=== PATIENT | female | born 1990 | race Two or more races ===

== ENCOUNTER 2016-06-06 20:26 | Emergency (ER) | payer MEDICAID ==
[2016-06-06 20:33] VITALS: TEMP 98.1
--- NOTE | 2016-06-06 22:04 | EDPHY ---
H & P Stated Complaint: BLOOD WITH BM LAST NIGHT AND TONIGHT, NO OTHER S/S Time Seen by Provider: 06/06/16 21:00 HPI/ROS: CHIEF COMPLAINT: rectal bleeding HISTORY OF PRESENT ILLNESS: 25-year-old female presents to the emergency department with 2 episodes of rectal bleeding after bowel movements, 1 last night and 1 today. Patient denies previous history of this. She denies abdominal pain, nausea vomiting or diarrhea. Patient states she has felt constipated for the last week with firmer than usual bowel movements that she has had to push to have. She has had daily bowel movements. REVIEW OF SYSTEMS: A comprehensive 10 point review of systems is otherwise negative aside from elements mentioned in the history of present illness. Source: Patient Exam Limitations: No limitations - Personal History LMP (Females 10-55): Now Current Tetanus/Diphtheria Vaccine: Unsure - Medical/Surgical History Hx Asthma: No Hx Chronic Respiratory Disease: No Hx Diabetes: No Hx Cardiac Disease: No Hx Renal Disease: No Hx Cirrhosis: No Hx Alcoholism: No Hx HIV/AIDS: No Hx Splenectomy or Spleen Trauma: No Other PMH: denies - Social History Smoking Status: Never smoked - Physical Exam Exam: Physical Exam Gen: Alert and Oriented, NAD HEENT: PERRL, moist mucous membranes NECK: no meningismus CV: regular rate and regular rhythm PULM: CTAB, no wheezes ABDOMEN: soft, non tender to palpation, BS present : No internal or external hemorrhoids, on anoscopy exam a small 2 mm anal fissure noted at the 6 o'clock position BACK: No CVA tenderness NEURO: Neurologically grossly intact EXTREMITIES: normal appearing SKIN: no rash or break in skin on exposed skin PSYCH: answers questions appropriately. Constitutional: Initial Vital Signs Temperature (C) 36.7 C 06/06/16 20:31 Heart Rate 89 06/06/16 20:31 Respiratory Rate 18 06/06/16 20:31 Blood Pressure 130/76 H 06/06/16 20:31 O2 Sat (%) 96 06/06/16 20:31 O2 Delivery Mode Room Air Allergies/Adverse Reactions: environmental Allergy (Uncoded 06/06/16 20:30) Home Medications: Medication Instructions Recorded [place] Fe 1-20 Tablet 06/06/16 Medical Decision Making Procedures: Anoscopy performed ED Course/Re-evaluation: 25-year-old nontoxic-appearing female with normal vital signs presents with 2 episodes of rectal bleeding after bowel movements. Anoscopy performed showing a small anal fissure, no active bleeding. Patient is discharged home with instructions on increasing her fiber in her diet and making her stools soft and not bearing down. She is given return precautions. She is comfortable with this plan. Differential Diagnosis: Diagnosis considered but not limited to GI bleed, hemorrhoid, anal fissure, constipation Departure - Departure Disposition: Home, Routine, Self-Care Clinical Impression: Anal fissure Condition: Good Instructions: Anal Fissure (ED) Additional Instructions: Drink plenty of fluids, eat more fiber, start taking MiraLax once a day for 7 days. Do not strain to have a bowel movement. Return to the emergency department for any increased bleeding, fevers, abdominal pain, any other questions or concerns. Referrals: Orville Chun MD [Medical Doctor] - As per Instructions (Primary care doctor on- call)
[2016-06-06 23:13] VITALS: BP 132/74; PULSE 83; RESP 16; O2SAT 94
== END 2016-06-06 23:13 | disposition home or self-care (01) ==
PROC: 0DJD8ZZ Inspection of Lower Intestinal Tract, Via Natural or Artificial Opening Endoscopic (ICD-10-PCS; principal; 2016-06-06)
DX: K60.2 Anal fissure, unspecified (principal)

== ENCOUNTER 2016-10-26 11:50 | Emergency (ER) | payer MEDICAID ==
--- NOTE | 2016-10-26 12:11 | CPEKG ---
Heart Rate: 82 RR Interval: 732 P-R Interval: 144 QRSD Interval: 78 QT Interval: 352 QTC Interval: 411 P [place]: 66 QRS [place]: 57 T Wave [place]: 0 EKG Severity - NORMAL ECG - EKG Impression: SINUS RHYTHM Electronically Signed By: Tiffanie Gonzalez 26-Oct-2016 15:37:30
[2016-10-26 13:25] LABS: % IMMATURE GRANULYOCYTES 0.3 % (0.0-1.1); ABSOLUTE IMMATURE GRANULOCYTES 0.02 10^3/uL (0.00-0.10); ADD DIFF? NO; ADD MORPH? NO; ADD SCAN? NO; ATYPICAL LYMPHOCYTE FLAG 60 (0-99); FRAGMENT RBC FLAG 0 (0-99); HEMATOCRIT 41.1 % (38.0-47.0); HEMOGLOBIN 14.1 g/dL (12.6-16.3); LEFT SHIFT FLG 0 (0-99); LIPEMIA HEMOLYSIS FLAG 90 (0-99); MEAN CELL HEMOGLOBIN 30.7 pg (27.9-34.1); MEAN CELL HEMOGLOBIN CONCENTR. 34.3 g/dL (32.4-36.7); MEAN CELL VOLUME 89.5 fL (81.5-99.8); MEAN PLATELET VOLUME 10.2 fL (8.7-11.7); PLATELET CLUMPS FLAG 0 (0-99); PLATELET COUNT 238 10^3/uL (150-400); RED BLOOD CELL COUNT 4.59 10^6/uL (4.18-5.33); RED CELL DISTRIBUTION WIDTH 13.1 % (11.5-15.2)
--- NOTE | 2016-10-26 13:58 | EDPHY ---
H & P Time Seen by Provider: 10/26/16 13:08 HPI/ROS: CHIEF COMPLAINT: Chest pain HISTORY OF PRESENT ILLNESS: The patient is a 26-year-old female who presents emergency department with 2 weeks of left-sided chest pain. She describes her pain is intermittent. Last for minutes at a time. It is not positional. It is not her worse with exertion. She also complains of left arm and left upper leg pain. These are also intermittent. She currently has no chest pain or shortness of breath. No cough fever. No leg swelling calf pain. REVIEW OF SYSTEMS: My complete review of systems is negative except as mentioned in the HPI. Past Medical/Surgical History: Negative Past surgical history: Negative Social history: The patient does not smoke. Family history: No early ACS Smoking Status: Never smoked Physical Exam: Vitals noted GENERAL: Well-appearing, in no acute distress, alert. HEENT: Eyes normal to inspection, normal pharynx, no signs of dehydration. NECK: No thyromegaly, no lymphadenopathy, supple. RESPIRATORY: Clear to auscultation bilaterally, no rales, rhonchi or wheezing. CVS: Regular rate and rhythm, no rubs, murmurs, or gallops. ABDOMEN: Soft, nontender, nondistended, no organomegaly. BACK: Normal to inspection, no CVA tenderness. SKIN: Normal color, no rash, warm, dry. No pallor. EXTREMITIES: No pedal edema, no calf tenderness, no Homans sign or cords, no joint swelling. NEURO/PSYCH: Alert and oriented x3, normal mood and affect, normal motor sensory exam. Constitutional: Initial Vital Signs Temperature (C) 36.8 C 10/26/16 11:57 Heart Rate 76 10/26/16 11:57 Respiratory Rate 20 10/26/16 11:57 Blood Pressure 112/69 10/26/16 11:57 O2 Sat (%) 97 10/26/16 11:57 O2 Delivery Mode Room Air Allergies/Adverse Reactions: environmental Allergy (Uncoded 10/26/16 11:56) Home Medications: Medication Instructions Recorded [place] Control 10/26/16 Medical Decision Making ED Course/Re-evaluation: In the emergency department I discussed possible etiologies with the patient. I answered all of her questions. Patient was given aspirin 324 mg orally. Laboratory studies, EKG were ordered. EKG shows normal sinus rhythm, normal rate, normal axis, normal intervals. There are no ST or T-wave abnormalities. EKG is normal as interpreted by me. Troponin and D-dimer negative. I rechecked the patient while here. She had no new shortness of other chest pain. Her EKG and laboratory studies were unremarkable. Id the patient warnings prior to leaving. She will return with worsening symptoms. Differential Diagnosis: My differential includes but is not limited to ACS, acute DE, pulmonary embolus , pleurisy, pneumonia, bronchitis, DVT - Data Points Laboratory Results: Laboratory Results 10/26/16 12:10 10/26/16 12:10 10/26/16 10/26/16 10/26/16 12:10 12:10 12:10 WBC 6.37 10^3/uL 10^3/uL (3.80-9.50) RBC 4.59 10^6/uL 10^6/uL (4.18-5.33) Hgb 14.1 g/dL g/dL (12.6-16.3) Hct 41.1 % % (38.0-47.0) MCV 89.5 fL fL (81.5-99.8) MCH 30.7 pg pg (27.9-34.1) MCHC 34.3 g/dL g/dL (32.4-36.7) RDW 13.1 % % (11.5-15.2) Plt Count 238 10^3/uL 10^3/uL (150-400) MPV 10.2 fL fL (8.7-11.7) Neut % (Auto) 43.2 % % (39.3-74.2) Lymph % (Auto) 44.7 % % (15.0-45.0) [place] % (Auto) 7.1 % % (4.5-13.0) Eos % (Auto) 4.1 % % (0.6-7.6) Baso % (Auto) 0.6 % % (0.3-1.7) Nucleat RBC Rel Count 0.0 % % (0.0-0.2) Absolute Neuts (auto) 2.75 10^3/uL 10^3/uL (1.70-6.50) Absolute Lymphs (auto) 2.85 10^3/uL 10^3/uL (1.00-3.00) Absolute Monos (auto) 0.45 10^3/uL 10^3/uL (0.30-0.80) Absolute Eos (auto) 0.26 10^3/uL 10^3/uL (0.03-0.40) Absolute Basos (auto) 0.04 10^3/uL 10^3/uL (0.02-0.10) Absolute Nucleated RBC 0.00 10^3/uL 10^3/uL (0-0.01) Immature Gran % 0.3 % % (0.0-1.1) Immature Gran # 0.02 10^3/uL 10^3/uL (0.00-0.10) D-Dimer < 0.27 ug/mLFEU ug/mLFEU (0.00-0.50) Sodium 139 mEq/L mEq/L (134-144) Potassium 3.9 mEq/L mEq/L (3.5-5.2) Chloride 106 mEq/L mEq/L (97-110) Carbon Dioxide 21 mEq/l L mEq/l (22-31) Anion Gap 12 mEq/L mEq/L (8-16) BUN 9 mg/dL mg/dL (7-23) Creatinine 0.6 mg/dL mg/dL (0.6-1.0) Estimated GFR > 60 Glucose 89 mg/dL mg/dL (70-100) Calcium 9.6 mg/dL mg/dL (8.5-10.4) Troponin I < 0.012 ng/mL ng/mL (0-0.034) Medications Given: Discontinued Medications Aspirin (Aspirin) 324 mg PO EDNOW ONE Stop: 10/26/16 14:17 Last Admin: 10/26/16 14:16 Dose: 324 mg Departure - Departure Disposition: Home, Routine, Self-Care Clinical Impression: Chest pain Qualifiers: Chest pain type: unspecified Qualified Code(s): R07.9 - Chest pain, unspecified Condition: Good Instructions: Chest Pain (ED) Additional Instructions: You had normal laboratory studies. Your EKG was normal. Return with increasing pain, shortness of breath or any other concerns. You been given follow-up with the primary care physician. Call to make an appointment. Referrals: NONE *PRIMARY CARE P,. [Primary Care Provider] - As per Instructions Mehreen Pool MD [Medical Doctor] - 3-4 days, if not improved
[2016-10-26 14:14] VITALS: RESP 16
[2016-10-26] MEDS ORDERED: ASPIRIN 81 MG CHEWABLE TAB PO ONE (14:16)
[2016-10-26] MEDS ORDERED: ASPIRIN 81 MG CHEWABLE TAB ONE (14:18)
[2016-10-26 14:47] LABS: ANION GAP 12 mEq/L (8-16); CALCIUM 9.6 mg/dL (8.5-10.4); CARBON DIOXIDE 21 mEq/l (22-31); CHLORIDE 106 mEq/L (97-110); CREATININE 0.6 mg/dL (0.6-1.0); GLOMERULAR FILTRATION RATE > 60; GLUCOSE 89 mg/dL (70-100); POTASSIUM 3.9 mEq/L (3.5-5.2); SODIUM 139 mEq/L (134-144)
[2016-10-26 14:58] LABS: TROPONIN I < 0.012 ng/mL (0-0.034)
[2016-10-26 15:29] VITALS: BP 111/68; PULSE 74; TEMP 99; O2SAT 96
== END 2016-10-26 15:32 | disposition home or self-care (01) ==
DX: R07.9 Chest pain, unspecified (principal)

== ENCOUNTER 2018-06-20 22:22 | Inpatient (IN) | payer MEDICAID ==
[2018-06-20] MEDS ORDERED: LIDOCAINE 1% 300 MG/30 ML SDV SC PRN (22:51)
[2018-06-20] MEDS ORDERED: OLIVE OIL 118 ML BTL MISC PRN (22:51)
[2018-06-20] MEDS ORDERED: EPSOM SALT 454 GM TP PRN (22:51)
[2018-06-20] MEDS ORDERED: IBUPROFEN 600 MG TAB PO PRN (22:51)
[2018-06-20] MEDS ORDERED: OXYTOCIN/RINGERS LACTATE 1,000 ML IV PRN (22:51)
[2018-06-20] MEDS ORDERED: MISOPROSTOL 200 MCG TAB PR PRN (22:51)
[2018-06-20 23:32] LABS: PLATELET COUNT 171 10^3/uL (150-400)
[2018-06-21] MEDS: LR 1,000 ML IV PRN ×2 (00:25→05:20)
[2018-06-21] MEDS ORDERED: LIDOCAINE 1% 300 MG/30 ML SDV ONE (00:33)
[2018-06-21] MEDS ORDERED: OLIVE OIL 118 ML BTL ONE (00:34)
[2018-06-21] MEDS ORDERED: TERBUTALINE SULFATE 1 MG/ML VIAL ONE (00:34)
[2018-06-21] MEDS ORDERED: OXYTOCIN 10 UNIT/ML VIAL ONE (00:34)
[2018-06-21] MEDS ORDERED: MISOPROSTOL 200 MCG TAB ONE (00:34)
[2018-06-21] MEDS ORDERED: AMMONIA AROMATIC 1 EACH AMP IH ONE (00:34)
--- NOTE | 2018-06-21 00:35 | PDGENHP ---
History and Physical History and Physical: Care: [facility] HPI: Daisy Medina" is a 27yo with IUP@ 40-1 weeks that presents to L&D with complaints of contractions since this morning. She states they have been increasing in pain since being seen in the office this afternoon. She denies any LOF, VB. She reports +FM. EDC: 06/20/18 which is based on LMP: 09/13/17 which is known and consistent with Ultrasound at 6 weeks. Her is complicated by: migraines without aura, mild anemia Review of Systems: Constitutional: Denies any fever, chills, or fatigue HEENT: denies any visual changes, difficulty swallowing, hearing loss Cardiovascular: Denies any chest pain, palpitations, leg swelling Respiratory: denies any cough, wheezing, or shortness of breathe GI: Denies any nausea, vomiting, diarrhea, constipation : denies any dysuria, urgency, frequency, vaginal bleeding Musculoskeletal: denies any muscle or bone pain Skin: denies any rashes Neuro: denies any headache, seizures, lightheadedness, dizziness, or loss of consciousness Psychiatric: denies any depression, anxiety, or SI/HI thoughts HISTORY: Previous OB history: G1 Past medical history: noncontributory Past surgical history: none Social: Denies any alcohol, tobacco, or drug use. Kd- Family history: Not relevant Medications: PNV, iron Allergies (list reaction): NKDA LABS: Rh: O+ ABS: Neg Rubella: Immune HbsAg: NR HIV: NR VDRL: NR 1hr: 112 GC: Neg Chlamydia: Neg Pap: Normal GBS: negative BMI: (prepreg) 21 PHYSICAL EXAM: Constitutional: WN, A&Ox3 HEENT: normocephalic atraumatic, supple Skin: Warm, dry, intact Heart: RRR, no murmur Chest: CTA-B Abdomen: Soft, nontender, gravid SVE: 5/80/-2 Extremities: trace edema, negative homans sign Neuro: grossly normal Psych: normal affect assessment: FHT baseline 145 +accels, no decels, moderate variability Contractions: toco q 2-5 Assessment: * [id number] with IUP@ 40-1wks * early labor * cat 1 fHR tracing * GBS Negative Plan: * admit to L&D * hydrotherapy/pain management PRN * IA per protocol * reassess 2-4hr/PRN * anticipate Today's visit was approximately 30 min, of which >50% of visit 25 min, was spent face to face with pt on direct counseling/coordination of care.
[2018-06-21] MEDS ORDERED: fentaNYL 2MCG/ML/BUP 0.1% RTU 100 ML BAG EP ONE (00:41)
[2018-06-21] MEDS ORDERED: PHENYLEPHRINE HCL 100 MCG/ML SYR ONE (00:41)
--- NOTE | 2018-06-21 00:45 | PREANESOB ---
Obstetric Pre-Anesthesia Info - General Info Proposed Procedure: epidural : 1 Para: 0 SALVATORE: 06/20/18 Gestational Age: 40 week(s) and 0 day(s) - Info Status: Full Term FHR Pattern: Reassuring - Labor Status Pitocin: Planned Indications for Labor Analgesia: Augmentation of Labor, Pain Control Labor Epidural: Proposed Anesthesia Allergies/Adverse Reactions: Allergy/AdvReac Type Severity Reaction Status Date / Time environmental Allergy Uncoded 06/20/18 22:48 Home Medications: Medication Instructions Recorded Iron 06/20/18 06/20/18 Visit Medications: Generic Name Dose Route Start Last Admin Trade Name Freq PRN Reason Stop Dose Admin Lactated Ringer's 1,000 mls @ 0 mls/hr 06/20/18 22:51 06/21/18 00:25 Lr IV 06/21/18 22:50 1,000 mls PRN PRN Administration SEE PROTOCOL CONDITIONS Protocol Per Protocol Oxytocin/Lactated Ringer's 1,000 mls @ 125 mls/hr 06/20/18 22:51 Pitocin 20 Units/Lr (Premix) IV PRN PRN Post bleeding Ibuprofen 600 mg 06/20/18 22:51 Motrin PO ONCE PRN post , pain Lidocaine HCl 300 mg 06/20/18 22:51 Lidocaine Hcl 1% SC 12/17/18 22:50 ONCE PRN episiotomy Magnesium Sulfate 454 gm 06/20/18 22:51 Epsom Salt TP 12/17/18 22:50 Q1H PRN perineal discomfort Misoprostol 800 - 1,000 mcg 06/20/18 22:51 Cytotec CO ONCE PRN Vaginal Atony/Bleeding Pharr Oil 118 ml 06/20/18 22:51 Sweet Oil MISC 12/17/18 22:50 ONCE PRN perineal massage Discontinued Medications Generic Name Dose Route Start Last Admin Trade Name Freq PRN Reason Stop Dose Admin Ammonia (Aromatic Spirit) Confirm 06/21/18 00:34 Ammonia Aromatic Administered 06/21/18 00:35 Dose 1 each IH .STK-MED ONE Fentanyl/Bupivacaine HCl Confirm 06/21/18 00:41 Fentanyl/Bupivacaine/Ns 2 Mcg/Ml 0.1% (Premix Administered 06/21/18 00:42 Dose 100 ml EP .STK-MED ONE Lidocaine HCl Confirm 06/21/18 00:33 Lidocaine Hcl 1% Administered 06/21/18 00:34 Dose 300 mg .ROUTE .STK-MED ONE Misoprostol Confirm 06/21/18 00:34 Cytotec Administered 06/21/18 00:35 Dose 1,000 mcg .ROUTE .STK-MED ONE Pharr Oil Confirm 06/21/18 00:34 Sweet Oil Administered 06/21/18 00:35 Dose 118 ml .ROUTE .STK-MED ONE Oxytocin Confirm 06/21/18 00:34 Pitocin Administered 06/21/18 00:35 Dose 40 unit .ROUTE .STK-MED ONE Phenylephrine HCl Confirm 06/21/18 00:41 Neosynephrine Administered 06/21/18 00:42 Dose 1,000 mcg .ROUTE .STK-MED ONE Terbutaline Sulfate Confirm 06/21/18 00:34 Brethine Administered 06/21/18 00:35 Dose 1 mg .ROUTE .STK-MED ONE - Anesthesia History Anesthesia & Operative History: No Prior Problems Family Anesthesia History: Negative - Social History Substance Use/Abuse: Denies - Vital Signs Height/Weight (Nursing): Height 160.02 cm Weight 68.039 kg - Focused Exam Neck exam: FROM Mallampati Score: Class 2 Mouth exam: normal dental/mouth exam Pulmonary: no respiratory distress, clear to auscultation Cardiovascular: regular rate and rhythym, no murmur, rub, or gallop Labs: 06/20/18 23:20 Patient ABO/Rh O POSITIVE 06/20/18 23:20 - Plan Consent Signed and on Chart: Yes Patient/Guardian Understands and Agrees to Plan: Yes
[2018-06-21] MEDS ORDERED: PHENYLEPHRINE HCL 100 MCG/ML SYR IVP PRN (01:13)
[2018-06-21] MEDS ORDERED: NALOXONE HCL 0.4 MG/ML INJ IVP PRN (01:13)
[2018-06-21] MEDS ORDERED: fentaNYL 2MCG/ML/BUP 0.1% RTU 100 ML EP SCH (01:30)
--- NOTE | 2018-06-21 03:34 | OBPROG ---
Labor Progress Note Assessment/Plan: Assessment: [id number] with IUP@ 40-1wks Active labor GBS Negative DAHIANA in place Cat 1 FHR Tracing Plan: cont expectant management reassess 2-4hr/PRN AROM if pt desires Anticipate 06/21/18 03:31 Subjective/Intrapartum Course: 06/21/18 03:33 pt resting well, comfortable with DAHIANA. Denies any pain. Objective: 06/20/18 23:20 Patient ABO/Rh O POSITIVE 06/20/18 23:20 - SVE Dilation (cm): 7 - Contraction Pattern Assessment Current Contraction Pattern: Regular - FHR Assessment Reis FHR (bpm): 145 FHR Pattern Variability: Moderate FHR Category: 1 Oxytocin Orders Assessment - Pre-Induction/Augmentation Assessment Gestational Age: 40 week(s) and 0 day(s) ICD10 Worksheet Patient Problems: Problems Problem Status Onset Labor and delivery, indication for care Acute - ICD10 Problem Qualifiers (1) Labor and delivery, indication for care
--- NOTE | 2018-06-21 05:16 | OBPROG ---
Labor Progress Note Assessment/Plan: Assessment: [id number] with IUP@ 40-1wks Active labor GBS Negative DAHIANA in place Cat 1 FHR Tracing AROM/MSF Plan: cont expectant management reassess 2-4hr/PRN Anticipate 06/21/18 05:15 Subjective/Intrapartum Course: 06/21/18 03:33 pt resting well, comfortable with DAHIANA. Denies any pain. 06/21/18 05:15 pt resting. family @ BS. She denies any pain. Objective: 06/20/18 23:20 Patient ABO/Rh O POSITIVE 06/20/18 23:20 - SVE Dilation (cm): 6 Effacement (%): 80 Station: -2 Membranes: AROM Amniotic Fluid Color: Meconium Stained - Contraction Pattern Assessment Current Contraction Pattern: Regular - FHR Assessment Reis FHR (bpm): 135 FHR Pattern Variability: Moderate FHR Category: 1 - Procedures Non-surgical Procedures: Amniotomy Oxytocin Orders Assessment - Pre-Induction/Augmentation Assessment Gestational Age: 40 week(s) and 0 day(s) ICD10 Worksheet Patient Problems: Problems Problem Status Onset Labor and delivery, indication for care Acute - ICD10 Problem Qualifiers (1) Labor and delivery, indication for care
[2018-06-21] MEDS ORDERED: METHYLERGONOVINE MAL 0.2 MG/ML INJ ONE (08:07)
[2018-06-21] MEDS ORDERED: HYDROCODONE/APAP 5/325 TAB PO PRN (08:33)
[2018-06-21] MEDS ORDERED: DOCUSATE SODIUM 100 MG CAP PO PRN (08:33)
[2018-06-21] MEDS ORDERED: SIMETHICONE 80 MG TAB CHEW PO PRN (08:33)
[2018-06-21] MEDS ORDERED: HYDROCORTISONE 0.5% CREAM TP PRN (08:33)
--- NOTE | 2018-06-21 08:33 | OBDEL ---
Info Type: Vaginal Presentation at Delivery: Vertex GBS+: No Intrapartum Medications: Generic Name Dose Route Start Last Admin Trade Name Freq PRN Reason Stop Dose Admin Lactated Ringer's 1,000 mls @ 0 mls/hr 06/20/18 22:51 06/21/18 05:20 Lr IV 06/21/18 22:50 1,000 mls PRN PRN Administration SEE PROTOCOL CONDITIONS Protocol Per Protocol Discontinued Medications Generic Name Dose Route Start Last Admin Trade Name Freq PRN Reason Stop Dose Admin Oxytocin/Lactated Ringer's 1,000 mls @ 125 mls/hr 06/20/18 22:51 06/21/18 07: 55 Pitocin 20 Units/Lr (Premix) IV 1,000 mls PRN PRN Administration Post bleeding - Hospital Course Intrapartum: 06/21/18 03:33 pt resting well, comfortable with DAHIANA. Denies any pain. 06/21/18 05:15 pt resting. family @ BS. She denies any pain. Indications for Delivery: Spontaneous Labor Vaginal Delivery - Delivery Provider Delivery Physician/CNM: Maribell James - Labor and Delivery Onset of Contractions Date: 06/20/18 Onset of Contractions Time: 06:00 Onset of Contractions Type: Spontaneous Rupture of Membranes Date: 06/21/18 Rupture of Membranes Time: 05:00 Rupture of Membranes Type: Artificial Amniotic Fluid Color: Meconium Stained Dilation Complete Date: 06/21/18 Dilation Complete Time: 06:21 Placenta Delivery Date: 06/21/18 Placenta Delivery Time: 07:50 Total Hours of Labor: 25 Non-surgical Procedures: Amniotomy Laceration: 1st Degree (vaginal), Other (Specify) (Right periurethral - hemostatic and not repaired) Repair: 3-0, Vicryl Vaginal Sponge Count Correct: Yes Vaginal Needle Count Correct: Yes Vaginal Sweep Performed: Yes EBL: 400 Delivery Events: Nuchal Cord Delivery Comment: HEAT PUMP INSTALLER at bedside for delivery due to meconium stained fluid. Baby vigorous at delivery and HEAT PUMP INSTALLER was not needed. [place] Data SALVATORE: 06/20/18 Gestational Age: 40 week(s) and 1 day(s) Reis Delivery Date: 06/21/18 Delivery Time: 07:45 Sex of Infant: Male Score (1 Min): 8 Score (5 Min): 9 ICD10 Worksheet Patient Problems: Problems Problem Status Onset Labor and delivery, indication for care Acute Vaginal delivery Acute - ICD10 Problem Qualifiers (1) Vaginal delivery
[2018-06-21] MEDS ORDERED: OXYTOCIN/RINGERS LACTATE 1,000 ML IV SCH (09:00)
[2018-06-21] MEDS: IBUPROFEN 600 MG TAB PO PRN ×2 (17:04→23:17)
[2018-06-21] MEDS: FERROUS SULFATE 325 MG TAB PO SCH ×2 (17:06→17:47)
[2018-06-21] MEDS: ACETAMINOPHEN 325 MG TAB PO PRN (23:16)
[2018-06-22] MEDS: ACETAMINOPHEN 325 MG TAB PO PRN ×3 (06:37→19:20)
[2018-06-22] MEDS: IBUPROFEN 600 MG TAB PO PRN ×3 (06:38→19:19)
[2018-06-22] MEDS: FERROUS SULFATE 325 MG TAB PO SCH ×3 (06:50→20:59)
--- NOTE | 2018-06-22 11:24 | OBPP ---
Progress Note Assessment/Plan: Assessment: 27 y/o P1 s/p ppd #1 anemia Plan: Routine pp care ferrous sulfated bid - encouraged good hydration Plan d/c home tomorrow 06/22/18 11:31 Subjective/ Course: 06/22/18 11:30 Feeling pretty good this morning, although did not get much sleep last night. Vaginal bleeding wnl, pain well controlled with oral pain meds, tolerating regular diet and activity - although she does report a little dizziness at times. going fine with support from . Objective: 06/22/18 06:45 Patient ABO/Rh O POSITIVE 06/20/18 23:20 Temp Pulse Resp BP Pulse Ox 36.4 C 90 16 97/62 L 96 06/22/18 04:00 06/22/18 04:00 06/22/18 04:00 06/22/18 04:00 06/22/18 04:00 Uterine Position/Fundal Height: At Umbilicus Uterine Tone: Firm Physical Exam - Physical Exam EENT: normal ENT inspection Neck: full range of motion Respiratory: normal breath sounds Cardiac/Chest: regular rate, rhythm Extremities: normal range of motion Skin: normal color, warm/dry Neuro/Psych: alert, normal mood/affect, oriented x 3
[2018-06-23] MEDS: IBUPROFEN 600 MG TAB PO PRN ×3 (01:36→14:58)
[2018-06-23 07:55] VITALS: BP 94/60
[2018-06-23] MEDS: FERROUS SULFATE 325 MG TAB PO SCH (09:14)
--- NOTE | 2018-06-23 11:54 | OBGCSDC ---
General Delivery Information - General Info : 1 Para: 1 Abortions: 0 Type: Vaginal L&D Analgesia/Anesthesia Type: Epidural Admission Date: 06/20/18 Labs: Patient ABO/Rh O POSITIVE 06/20/18 23:20 Hct 29.5 % (38.0-47.0) L 06/22/18 06:45 - Hospital Course Intrapartum: 06/21/18 03:33 pt resting well, comfortable with DAHIANA. Denies any pain. 06/21/18 05:15 pt resting. family @ BS. She denies any pain. : 06/22/18 11:30 Feeling pretty good this morning, although did not get much sleep last night. Vaginal bleeding wnl, pain well controlled with oral pain meds, tolerating regular diet and activity - although she does report a little dizziness at times. going fine with support from . 06/23/18 11:53 S) Pt doing well, reports min pain and bleeding. she is ambulating and voiding without difficulty. She is . She desires discharge home today. O) VSS, afebrile constitutional: WNWF, A&Ox3 HEENT: normocephalic, atraumatic, supple Heart: RRR, No murmur Chest: CTA-B Abdomen: Soft, nontender Uterus: Firm at U-2 Lochia: Minimal rubra Perineum: Intact, healing well Extremities: Trace edema, and negative Davey's sign Neuro: Grossly normal A) 27 year-old P1 S/P PPD#2 Anemia P) Discharge home today Continue Iron supplement bid Pelvic rest x6wks Discussed danger signs (infection, preeclampsia, depression, heavy bleeding, etc) RTO in 2/4/6 weeks Vaginal - Delivery Provider Delivery Physician/CNM: Maribell James - Diagnosis Labor: Spontaneous Rupture of Membranes Type: Artificial Amniotic Fluid Color: Meconium Stained Laceration: 1st Degree (vaginal), Other (Specify) (Right periurethral - hemostatic and not repaired) Repair: 3-0, Vicryl Delivery Events: Nuchal Cord - Procedures Non-surgical Procedures: Amniotomy - Delivery Non-surgical Procedures: Amniotomy EBL: 400 [place] Data SALVATORE: 06/20/18 Gestational Age: 40 week(s) and 3 day(s) Reis Delivery Date: 06/21/18 Delivery Time: 07:45 Sex of Infant: Male Weight (gm): 3036 g Score (1 Min): 8 Score (5 Min): 9 Discharge Information - Discharge Information Prescriptions: Ibuprofen [Motrin (*)] 600 mg PO Q6HRS PRN #30 tab PRN Reason: Pain, Mild Able To Take Po Condition: Good
== END 2018-06-23 15:15 | disposition home or self-care (01) | DRG 560 ==
LOC: FLD 22:22 → OBSVTOIN 23:18 → FOB 06-21 13:00
PROVIDERS: ADMIT Advanced Practice Midwife; ATTEND Advanced Practice Midwife
DX: O48.0 Post-term pregnancy (principal); O70.0 First degree perineal laceration during delivery; O99.03 Anemia complicating the puerperium; Z3A.40 40 weeks gestation of pregnancy; Z37.0 Single live birth
CPT/HCPCS: J2210; J2370; J2590; J3105

== ENCOUNTER → 2018-07-02 | Outpatient (CLI) | payer MEDICAID | LOC: FLACT 13:10 ==